=== PATIENT | female | born 1975 | race African-American/Black ===

== ENCOUNTER 2019-05-27 09:54 | Emergency (ER) | payer MEDICAID ==
[~2019-05-27] VITALS: Ht 175.3 cm; Wt 91.0 kg
[2019-05-27] MEDS ORDERED: TOPUD PO (10:48)
[2019-05-27] MEDS ORDERED: KETOROLAC 60MG/2ML VIAL IM ONE (12:15)
[2019-05-27 13:40] VITALS: BP 118/60
== END 2019-05-27 13:38 | disposition home or self-care (01) ==
LOC: ER 09:54
DX: S82.891A Other fracture of right lower leg, initial encounter for closed fracture (principal); S82.831A Other fracture of upper and lower end of right fibula, initial encounter for closed fracture; X58.XXXA Exposure to other specified factors, initial encounter; Y93.89 Activity, other specified; Y92.89 Other specified places as the place of occurrence of the external cause; Y99.8 Other external cause status; F17.200 Nicotine dependence, unspecified, uncomplicated; Z90.49 Acquired absence of other specified parts of digestive tract; Z87.19 Personal history of other diseases of the digestive system
CPT/HCPCS: 29515; 73610; 96372; 99283; J1885